=== PATIENT | female | born 1995 | race Asian ===

== ENCOUNTER 2023-07-27 20:47 | Emergency (ER) | payer OTHER, MEDICAID ==
[~2023-07-27] VITALS: Ht 167.6 cm; Wt 116.0 kg
[2023-07-27 20:54] VITALS: BP 122/82; O2SAT 99
[2023-07-27] MEDS ORDERED: CARB-173 EACH EAR (21:00)
[2023-07-27 22:23] VITALS: PULSE 94; RESP 16; TEMP 98.3
== END 2023-07-27 22:25 | disposition home or self-care (01) ==
LOC: ER 20:47
DX: H61.22 Impacted cerumen, left ear (principal)
CPT/HCPCS: 99282